=== PATIENT | male | born 1990 | race Asian ===

== ENCOUNTER 2022-06-03 06:08 | Emergency (ER) | payer OTHER ==
[~2022-06-03] VITALS: Ht 180.3 cm; Wt 84.5 kg
[2022-06-03 06:09] VITALS: BP 143/86
[2022-06-03] MEDS ORDERED: ISON300T18 PO (06:37)
[2022-06-03] MEDS ORDERED: PYRI50TA8 PO (06:37)
== END 2022-06-03 08:00 | disposition left against medical advice (07) ==
LOC: M ED 06:08
DX: Z53.21 Procedure and treatment not carried out due to patient leaving prior to being seen by health care provider (principal)